=== PATIENT | female | born 1955 | race Caucasian/White ===

== ENCOUNTER 2020-06-01 07:14 | Emergency (ER) | payer OTHER ==
[~2020-06-01] VITALS: Ht 162.6 cm; Wt 72.6 kg
[2020-06-01] MEDS ORDERED: LEVOTHYROXINE125 MCG PO (07:31)
[2020-06-01] MEDS ORDERED: LISINOPRIL10 MG PO (07:31)
[2020-06-01] MEDS ORDERED: GYNODIOL0.5 MG PO ×2 (07:32→07:33)
[2020-06-01 07:41] LABS: ABSOLUTE NEUTROPHILS 2.9 thou/uL (1.4-8.2); BASOPHILS 1.1 % (0.0-2.0); EOSINOPHILS 1.3 % (0.0-3.0); HEMATOCRIT 42.5 % (37.0-47.0); HEMOGLOBIN 14.5 gm/dL (12.0-15.0); LYMPHOCYTES 13.8 % (24.0-44.0); MCH 30.9 pg (26.0-34.0); MCHC 34.2 g/dL (28.0-37.0); MCV 90.6 fL (80.0-100.0); MONOCYTES 7.5 % (1.0-8.0); PLATELET COUNT 124 thou/uL (150-400); POLYS 76.3 % (36.0-66.0); RBC 4.69 mil/uL (4.20-5.00); WBC 3.9 thou/uL (4.0-11.0)
[2020-06-01 07:51] LABS: ANION GAP 6 mmol/L (7-16); BUN 16 mg/dL (7-18); CALCIUM 9.7 mg/dL (8.5-10.1); CHLORIDE 101 mmol/L (98-107); CO2 30 mmol/L (21-32); CREATININE 0.9 mg/dL (0.6-1.0); GLUCOSE 93 mg/dL (74-106); POTASSIUM 3.9 mmol/L (3.5-5.1); SODIUM 137 mmol/L (136-145)
[2020-06-01 08:00] LABS: TROPONIN-I <0.06 ng/mL (<0.06)
--- NOTE | 2020-06-01 08:23 | EKG ---
[facility] [place] [address] ELECTROCARDIOGRAM REPORT Name: LORELEI WILSON Room #: [facility].#: [id number] Admission: 06/01/20 Attend Phys: Discharge: Date of : 59 Report #: [id number] THIS REPORT FOR: cc: Radha Waller MD, Nora P. 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1955 Requested By: Darrian Stafford Order Number: [id number] MD: Eliel Sam Measurements Intervals [place] Rate: 70 P: 50 MT: 202 QRS: -27 QRSD: 82 T: 58 QT: 386 QTc: 417 Interpretive Statements Sinus rhythm Borderline left axis deviation RSR' in V1 or V2, probably normal variant Poor R wave progression Compared to ECG 05/03/2020 09:44:28 No significant change was found Electronically Signed On 06-01-2020 8:23:09 CDT by Eliel Sam [email or web address] <ELECTRONICALLY SIGNED> By: Eliel Sam MD, [facility] 06/01/20 0823 4 Eliel Sam MD, [facility] /EPI
[2020-06-01 09:15] VITALS: BP 137/72
[2020-06-02] MEDS ORDERED: ZOFRAN ODT4 MG PO (07:35)
== END 2020-06-01 09:17 | disposition home or self-care (01) ==
LOC: ER 07:14
PROVIDERS: Emergency Medicine
DX: R07.89 Other chest pain (principal); Z79.899 Other long term (current) drug therapy; Z88.8 Allergy status to other drugs, medicaments and biological substances

== ENCOUNTER 2020-06-02 05:51 | Emergency (ER) | payer OTHER ==
[~2020-06-02] VITALS: Ht 162.6 cm; Wt 72.6 kg
[~2020-06-02 05:51] MED LIST: GYNODIOL0.5 MG PO; LEVOTHYROXINE125 MCG PO; LISINOPRIL10 MG PO
[2020-06-02 06:26] LABS: ABSOLUTE NEUTROPHILS 5.9 thou/uL (1.4-8.2)
[2020-06-02 06:28] LABS: BASOPHILS 0.5 % (0.0-2.0); EOSINOPHILS 0.4 % (0.0-3.0); HEMATOCRIT 39.9 % (37.0-47.0); HEMOGLOBIN 13.9 gm/dL (12.0-15.0); LYMPHOCYTES 6.7 % (24.0-44.0); MCH 31.5 pg (26.0-34.0); MCHC 34.7 g/dL (28.0-37.0); MCV 90.7 fL (80.0-100.0); MONOCYTES 9.9 % (1.0-8.0); PLATELET COUNT 100 thou/uL (150-400); POLYS 82.5 % (36.0-66.0); WBC 9.2 thou/uL (4.0-11.0)
[2020-06-02 06:37] LABS: ANION GAP 9 mmol/L (7-16); BUN 11 mg/dL (7-18); CALCIUM 9.5 mg/dL (8.5-10.1); CHLORIDE 98 mmol/L (98-107); CO2 28 mmol/L (21-32); CREATININE 0.9 mg/dL (0.6-1.0); GLUCOSE 110 mg/dL (74-106); POTASSIUM 4.2 mmol/L (3.5-5.1); SODIUM 135 mmol/L (136-145)
[2020-06-02 06:46] LABS: MAGNESIUM 1.9 mg/dL (1.8-2.4); TROPONIN-I <0.06 ng/mL (<0.06)
[2020-06-02] MEDS ORDERED: ZOFRAN ODT4 MG PO (07:35)
[2020-06-02 08:02] VITALS: BP 152/72
--- NOTE | 2020-06-02 15:47 | EKG ---
[facility] [place] [address] [place] [address] ELECTROCARDIOGRAM REPORT Name: LORELEI WILSON [id number] Admission: 06/02/20 Attend Phys: Discharge: 06/02/20 Date of : 59 Report #: [id number] THIS REPORT FOR: cc: Radha Waller MD, Nora P. 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: : 1955 Requested By: Darrian Stafford Order Number: [id number] MD: Eliel Sam Measurements Intervals [place] Rate: 76 P: 42 RI: 183 QRS: -12 QRSD: 82 T: 66 QT: 383 QTc: 431 Interpretive Statements Sinus rhythm Poor R wave progression Cannot rule out inferior infarct, age indeterminate Compared to ECG 06/01/2020 07:15:45 ST (T wave) deviation now present Electronically Signed On 06-02-2020 15:47:13 CDT by Eliel Sam [email or web address] <ELECTRONICALLY SIGNED> By: Eliel Sma MD, [facility] 06/02/20 [id number] Eliel Sam MD, [facility] /EPI
== END 2020-06-02 08:02 | disposition home or self-care (01) ==
LOC: ER 05:51
PROVIDERS: Emergency Medicine
DX: K59.00 Constipation, unspecified (principal); J98.11 Atelectasis; I10 Essential (primary) hypertension; Z79.899 Other long term (current) drug therapy; Z88.8 Allergy status to other drugs, medicaments and biological substances

== ENCOUNTER → 2020-06-29 | Outpatient (CLI) | payer OTHER ==
[~2020-06-29] MED LIST changes: +ZOFRAN ODT4 MG PO
== END ==
LOC: ULTRA 08:04
PROVIDERS: ATTEND Family Medicine
DX: I10 Essential (primary) hypertension (principal)